=== PATIENT | male | born 1955 | race Caucasian/White ===

== ENCOUNTER 2025-04-06 13:29 | Outpatient (CLI) | payer MEDICARE, OTHER | END 2025-04-06 13:30 | disposition home or self-care (01) | LOC: RAD 13:29 | PROVIDERS: ATTEND Thoracic Surgery (Cardiothoracic Vascular Surgery) | DX: J98.59 Other diseases of mediastinum, not elsewhere classified (principal) | CPT/HCPCS: 71046 ==